=== PATIENT | male | born 1995 | race Caucasian/White ===

== ENCOUNTER 2018-01-08 02:43 | Emergency (ER) | payer SELFPAY ==
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
[2018-01-08 03:32] VITALS: BP 126/75
== END 2018-01-08 03:33 | disposition home or self-care (01) ==
LOC: ED 02:43
DX: F10.129 Alcohol abuse with intoxication, unspecified (principal); S49.91XA Unspecified injury of right shoulder and upper arm, initial encounter; X58.XXXA Exposure to other specified factors, initial encounter; Y92.9 Unspecified place or not applicable; Z88.3 Allergy status to other anti-infective agents
CPT/HCPCS: 99282